=== PATIENT | female | born 1945 | race Hispanic/Latino ===

== ENCOUNTER → 2018-09-26 | Day surgery (SDC) | payer MEDICARE ==
[2018-09-18 14:00] LABS: BASOPHILS # (AUTO) 0.1 (0.0-0.1); BASOPHILS % 1.1 % (0.0-1.0); EOSINOPHILS # (AUTO) 0.4 (0.0-0.4); EOSINOPHILS % 5.7 % (0.0-6.0); HEMATOCRIT 37.8 % (34.2-44.1); HEMOGLOBIN 12.7 g/dL (12.0-16.0); LYMPHOCYTES # (AUTO) 2.1 (1.0-3.2); LYMPHOCYTES % 32.8 % (18.0-39.1); MEAN CORPUSCULAR HEMOGLOBIN 33.3 pg (28-32); MEAN CORPUSCULAR HGB CONC 33.6 g/dL (31-35); MEAN CORPUSCULAR VOLUME 99.2 fL (81-99); MONOCYTES # (AUTO) 0.5 (0.2-0.8); MONOCYTES % 8.4 % (4.4-11.3); NEUTROPHILS # (AUTO) 3.3 (2.1-6.9); NEUTROPHILS % 51.8 % (38.7-80.0); PLATELET COUNT 237 x10e3/uL (140-360); RED BLOOD COUNT 3.81 x10e6/uL (3.6-5.1); RED CELL DISTRIBUTION WIDTH 12.9 % (11.7-14.4)
[2018-09-18 14:17] LABS: ANION GAP 16.2 mmol/L (8-16); CREATININE, SERUM 1.41 mg/dL (0.57-1.11)
[2018-09-18 14:21] LABS: POTASSIUM 5.2 mmol/L (3.5-5.1)
[~2018-09-26] MED LIST: CHONDR SU A NA/HYALUR SOD 1 EACH KIT IO ONE; CYCLOPENTOLATE HCL 1% OPTH SOLN 2ML BTL ONE; EPINEPHRINE HCL INJ 1 MG/ML AMP ONE; GATIFLOXACIN(OPTH) 5 ML LIQD ONE; LIDOCAINE 2% /EPINEPHRINE 20 ML SDV INJ ONE; LIDOCAINE HCL-PF 4% 40 MG/1 ML 5ML AMP ONE; LOSARTAN POTAS100 MG PO; PILOCARPINE HCL(OPTH) 15 ML LIQD ONE; POVIDONE IODINE 5% (OPTH) 30 ML BTL ONE; PREOP PHACO EYE KIT ONE; PROPOFOL IV EMULSION 10 MG/ML 20 ML VIAL ONE; SIMVASTATIN20 MG PO; TOBRAMYCIN/DEXAMETHASONE(OPTH) 3.5 GM TUBE ONE; [UNRECOGNIZED DRUG - REMARK]
--- OUTSIDE RECORDS SUMMARY | 2018-09-26 06:19 | XMS REPORT | Continuity of Care Document ---
Author Author [facility] Interface Address Unknown Phone Unavailable Problems Problem Status Onset Date Classification Date Reported Comments Source UNK Active 02/08/2018 [place] Pain in right shoulder 11/21/2017 02/21/2018 [facility] M54.16 - RADICULOPATHY, LUMBAR REGION M2 Active 11/15/2017 [facility] M51.9 - "UNSP THORACIC, THORACOLUM AND" Active 01/23/2017 [facility] Mammogram<sup>12</sup> Resolved 12/14/2015 Problem 01/27/2017 [facility] no evidence of malignancy [facility] [place] Mammogram<sup>11</sup> Resolved 12/14/2015 Problem 04/04/2018 [facility] no evidence of malignancy [facility] Anxiety disorder<sup>1</sup> Active 04/07/2015 Problem 04/04/2018 Data migrated from Edge[employer] Network[employer] on 05/05/15. [facility] Backache<sup>2, 3, 4</sup> Resolved 04/07/2015 Problem 04/04/2018 Data migrated from [employer] on 04/07/15. [facility] Discharge Diagnosis: Acute sciatica 04/04/2015 04/07/2015 [facility] Discharge Diagnosis: Acute leg pain 04/04/2015 04/07/2015 [place] WEAKNESS Active 04/04/2015 [facility] Chronic kidney disease stage 3<sup>5</sup> Active 03/12/2015 Problem 04/04/2018 Data migrated from [employer] on 04/07/15. [facility] RIGHT SHOULDER Active 02/25/2015 [facility] Indigestion<sup>8</sup> Active 10/20/2014 Problem 04/07/2015 8Data migrated from [employer] on 02/27/15. [facility] Cramp in lower limb<sup>2</sup> Active 09/29/2014 Problem 04/07/2015 2Data migrated from [employer] on 02/27/15. [facility] Cramp in lower limb<sup>7</sup> Resolved 09/29/2014 Problem 04/04/2018 Data migrated from [employer] on 02/27/15. [facility] Upper respiratory infection<sup>14, 15</sup> Resolved 08/31/2014 Problem 01/27/2017 Data migrated from [employer] on 04/16/15. [facility] Upper respiratory infection<sup>13, 14</sup> Resolved 08/31/2014 Problem 04/04/2018 Data migrated from [employer] on 04/16/15. [facility] Cobalamin deficiency<sup>1</sup> Active 08/10/2014 Problem 04/07/2015 1Data migrated from [employer] on 02/27/15. [facility] Vitamin D deficiency<sup>16</sup> Active 08/10/2014 Problem 04/07/2015 16Data migrated from [employer] on 02/27/15. [facility] Vitamin D deficiency<sup>16</sup> Active 08/10/2014 Problem 02/21/2018 Data migrated from [employer] on 02/27/15. [facility] Vitamin D deficiency<sup>17</sup> Active 08/10/2014 Problem 01/27/2017 Data migrated from [employer] on 02/27/15. [facility] Cobalamin deficiency<sup>6</sup> Active 08/10/2014 Problem 04/04/2018 Data migrated from [employer] on 02/27/15. [facility] Vitamin D deficiency<sup>16</sup> Active 08/10/2014 Problem 04/04/2018 Data migrated from [employer] on 02/27/15. [facility] Heart murmur<sup>5</sup> Active 03/11/2014 Problem 04/07/2015 5Data migrated from [employer] on 02/27/15. [facility] [place] Varicose veins of lower extremity<sup>15</sup> Active 03/11/2014 Problem 04/07/2015 15Data migrated from [employer] on 02/27/15. [facility] Varicose veins of lower extremity<sup>15</sup> Active 03/11/2014 Problem 02/21/2018 Data migrated from [employer] on 02/27/15. [facility] Varicose veins of lower extremity<sup>16</sup> Active 03/11/2014 Problem 01/27/2017 Data migrated from [employer] on 02/27/15. [facility] Varicose veins of lower extremity<sup>15</sup> Active 03/11/2014 Problem 04/04/2018 Data migrated from [employer] on 02/27/15. [facility] Impaired fasting glycaemia<sup>7</sup> Active 12/05/2013 Problem 04/07/2015 7Data migrated from [employer] on 02/27/15. [facility] Liver function tests abnormal<sup>10</sup> Active 11/28/2013 Problem 04/07/2015 10Data migrated from [employer] on 02/27/15. [facility] Foot callus<sup>4</sup> Active 11/24/2013 Problem 04/07/2015 4Data migrated from [employer] on 02/27/15. [facility] Osteopenia<sup>12</sup> Active 11/24/2013 Problem 04/07/2015 12Data migrated from [employer] on 02/27/15. [facility] Rotator cuff syndrome<sup>14</sup> Active 11/24/2013 Problem 04/07/2015 14Data migrated from [employer] on 02/27/15. [facility] Rotator cuff syndrome<sup>13</sup> Active 11/24/2013 Problem 01/27/2017 Data migrated from [employer] on 02/27/15. [facility] Rotator cuff syndrome<sup>12</sup> Active 11/24/2013 Problem 04/04/2018 Data migrated from [employer] on 02/27/15. [facility] Mammography abnormal<sup>11</sup> Active 11/13/2013 Problem 04/07/2015 11Data migrated from [employer] on 02/27/15. [facility], [place] Postmenopausal state<sup>13</sup> Active 07/14/2013 Problem 04/07/2015 13Data migrated from [employer] on 02/27/15. [facility] Impacted cerumen<sup>9, 10</sup> Resolved 07/14/2013 Problem 04/04/2018 Data migrated from [employer] on 04/16/15. [facility] Elevated blood-pressure reading without diagnosis of hypertension<sup>3</sup> Active 07/02/2013 Problem 04/07/2015 3Data migrated from [employer] on 02/27/15. [facility] Hyperlipidemia<sup>6</sup> Active Problem 04/07/2015 6Data migrated from [employer] on 02/27/15. [facility] Insomnia<sup>9</sup> Active Problem 04/07/2015 9Data migrated from [employer] on 02/27/15. [facility] [place] Pain in left shoulder 02/21/2018 [facility] Primary osteoarthritis, right shoulder 02/21/2018 [facility] Intervertebral disc disorders with radiculopathy, lumbar region 02/21/2018 [facility] Other spondylosis with radiculopathy, lumbar region 02/21/2018 [facility] Spinal stenosis, lumbar region without neurogenic claudication 02/21/2018 [facility] Spinal stenosis, lumbosacral region 02/21/2018 [facility] Hyperlipemia Resolved Problem 02/21/2018 [facility] History of prediabetes Active Problem 01/27/2017 [facility] Insomnia<sup>11</sup> Active Problem 01/27/2017 Data migrated from [employer] on 02/27/15. [facility] Bilateral low back pain Active Problem 01/27/2017 [facility] Osteoporosis Active Problem 01/27/2017 [facility] Benign hypertension Active Problem 04/04/2018 [facility] Carpal tunnel syndrome Active Problem 04/04/2018 [facility] GERD (<span ID="[id number]">Confirmed</span>) Active Problem 04/04/2018 [facility] Hyperlipemia Resolved Problem 04/04/2018 [facility] Hyperlipidemia<sup>8</sup> Active Problem 04/04/2018 Data migrated from [employer] on 02/27/15. [facility] Osteopenia Active Problem 04/04/2018 [facility] Prediabetes Active Problem 04/04/2018 [facility] Insomnia Active Problem 04/04/2018 [facility] Lumbar canal stenosis Active Problem 04/04/2018 [facility] Scleroderma Active Problem 04/04/2018 [facility] Joint pain Active Diagnosis 09/13/2018 [facility] Dysphagia, unspecified Active Problem 09/13/2018 [facility] Right shoulder pain Active Problem 09/13/2018 [facility] Proteinuria, unspecified Active Diagnosis 09/13/2018 [facility] Abnormal antinuclear antibody titer Active Problem 09/13/2018 [facility] Shoulder pain, right Active Diagnosis 09/13/2018 [facility] Scleroderma with organ system involvment Active Diagnosis 09/13/2018 [facility] Medications Medication Details Route Status Patient Instructions Ordering Provider Order Date Source Hydroxychloroquine Sulfate 1.5 tablet with food or milk Orally Active 200 MG Orally Once a day Lexis 08/01/2018 Tony Gomes PredniSONE 1 tab prn Orally Active 5 MG Orally Once a day [facility] 07/29/2018 Tony Gomes rosuvastatin 5 mg oral tablet 5 mg=1 tab, PO, Bedtime, # 90 tab, 1 Refill(s), Pharmacy: [id number] Active 03/28/2018 [facility] gabapentin 300 MG Oral Capsule 300 mg=1 cap, PO, BID, # 90 cap, 1 Refill(s) Active 12/27/2017 [facility] Ventolin HFA 90 mcg/inh inhalation aerosol with adapter 2 puff, INHALER, Q4H, PRN wheezing, coughing, or shortness of breath, # 8 gm, 1 Refill(s), Pharmacy: [facility] [id number] Active 11/03/2017 [facility] benzonatate 200 MG Oral Capsule [Tessalon] 200 mg=1 cap, PO, TID, X 10 day, # 30 cap, 0 Refill(s), [facility] [id number] No Longer Active 11/03/2017 [facility] azithromycin 250 mg oral tablet See Instructions, Take 2 tablets by mouth the first day then 1 tablet by mouth daily on days 2-5., X 5 day, # 6 tab, 0 Refill(s), Pharmacy: [facility] [id number] No Longer Active 11/03/2017 [facility] Oseltamivir 75 MG Oral Capsule [Tamiflu] 75 mg, PO, Q12H, X 5 day, # 10 cap, 0 Refill(s), [facility] [id number] No Long[facility] Active 11/03/2017 [facility] losartan 25 mg oral tablet 25 mg=1 tab, PO, Daily, # 90 tab, 1 Refill(s), [id number] Active 09/26/2017 [facility] Metoclopramide 10 MG Oral Tablet [Reglan] 10 mg=1 tab, PO, QID, X 7 day, # 28 tab, 0 Refill(s), Pharmacy: [facility]/pharm[facility] #[id number] Active 04/04/2015 [facility] tramadol hydrochloride 50 MG Oral Tablet 50 mg=1 tab, PO, Q4H, PRN as needed for pain, X 7 day, # 24 tab, 0 Refill(s) Active 04/04/2015 [facility] Morphine 4 mg, Route: IM, Drug form: INJ, ONCE, Dosing Weight 59.091, kg, Priority: STAT, Start date: 04/04/15 12:23:00, Stop date: 04/04/15 12:23:00 Inactive 04/04/2015 [facility] Zofran 4 mg, Route: PO, Drug form: TABDIS, ONCE, Dosing Weight 59.091, kg, Priority: STAT, Start date: 04/04/15 11:13:00, Stop date: 04/04/15 11:13:00 Inactive 04/04/2015 [facility] tramadol hydrochloride 50 MG Oral Tablet 50 mg, Route: PO, Drug form: TAB, ONCE, Dosing Weight 59.091, kg, Priority: STAT, Start date: 04/04/15 11:10:00, Stop date: 04/04/15 11:10:00 Inactive 04/04/2015 [facility] ketOROLAC 30 mg/mL injectable solution 30 mg, Route: IM, Drug form: INJ, ONCE, Dosing Weight 59.091, kg, Priority: STAT, Start date: 04/04/15 11:07:00, Stop date: 04/04/15 11:07:00 Inactive 04/04/2015 [facility] Pravastatin Sodium 1 tablet Orally Active 20 MG Orally Once a day [facility] Losartan Potassium 1 tablet Orally Active 25 MG Orally Once a day [facility] Gomes Prevacid 1 capsule Orally Active 15 MG Orally Once a day [facility] Gomes Rosuvastatin Calcium 1 tablet Orally Active 5 MG Orally Once a day [facility] G[facility] Gabapentin 2 capsule Orally Active 300 MG Orally Once a day [facility] Allergies, Adverse Reactions, Alerts Substance Category Reaction Severity Reaction type Status Date Reported Comments Source N.K.D.A. Adverse Reaction Info Not Available Adverse Reaction Active 09/09/2018 [facility] Immunizations Immunization Date Given Site Status Last Updated Comments Source influenza virus vaccine, inactivated<sup>1</sup> 06/01/2017 completed [facility] Result Comment: [06/27/2017] At [facility] influenza virus vaccine, inactivated 06/12/2016 Left Deltoid completed [facility] diphtheria/pertussis, acel/tetanus adult 06/12/2016 Right Deltoid completed [facility] influenza virus vaccine, inactivated 07/01/2015 completed [facility] pneumococcal 23-valent vaccine<sup>3</sup> 08/10/2014 Left Deltoid completed GE Result Comment: pneumovax 23 [[id number]]. Migrated from OBS VIS: Pneumovax 23: 07-06-09 ; Data migrated from [employer] on 11/02/2015. [facility] pneumococcal 23-valent vaccine<sup>4</sup> 08/10/2014 Left Deltoid completed GE Result Comment: pneumovax 23 [cvx33]. Migrated from OBS VIS: Pneumovax 23: 07-06-09 ; Data migrated from [employer] on 11/02/2015. [facility] influenza virus vaccine, inactivated<sup>1</sup> 06/25/2014 Left Deltoid completed GE Result Comment: fluzone high dose [[id number]]. Migrated from OBS ; Data migrated from [employer] on 11/02/2015. [facility] influenza virus vaccine, inactivated<sup>2</sup> 06/25/2014 Left Deltoid completed GE Result Comment: fluzone high dose [[id number]]. Migrated from OBS ; Data migrated from [employer] on 11/02/2015. [facility] influenza virus vaccine, inactivated<sup>2</sup> 07/02/2013 Left Deltoid completed GE Result Comment: fluzone (>3 yrs.) [[id number]]. Migrated from OBS ; Data migrated from [employer] on 11/02/2015. [facility]ONDA [facility] influenza virus vaccine, inactivated<sup>3</sup> 07/02/2013 Left Deltoid completed GE Result Comment: fluzone (>3 yrs.) [[id number]]. Migrated from OBS ; Data migrated from [employer] on 11/02/2015. [facility] Results Order Name Results Value Reference Range Date Interpretation Comments Source Chest 1view DX Chest 1view DX Exam: Chest x-ray, one view Reason for Exam: - [id number] Encounter for other preprocedural examination. Carpal tunnel surgery. Comparison Exam: X-ray 09/27/2009 Discussion: Cardiomediastinal silhouette is within normal limits. Both hemidiaphragms well visualized. No pulmonary edema or pleural effusions. No focal lung consolidations. No acute bony abnormalities. Impression: 1. No acute cardiopulmonary abnormalities. 06/27/2018 - - Read by: Maik Reveles MD Dictated Date/time: 06/27/18 12:41 Electronically Signed by: Maik Reveles MD 06/27/18 12:43 FINAL REPORT [facility]I [facility] Shoulder 2+ Views Bilateral DX Shoulder 2+ Views Bilateral DX Exam: Right and left shoulder x-rays, 3 views each Reason for Exam: Bilateral shoulder pain Comparison Exam: None Discussion: Right: No acute bony abnormalities identified. Moderate osteoarthritis seen within the glenohumeral joint and AC joint. There is downsloping seen of the acromion. If there is suspicion for rotator cuff impingement, consider dedicated MRI exam. No suspicious osteoblastic or osteolytic lesions. Visualized portions of the right rib cage and right lung are unremarkable. Left: No acute bony abnormalities identified. Mild osteoarthritis seen within the glenohumeral joint and AC joint. No suspicious osteoblastic or osteolytic lesions. Visualized portions of the left rib cage and left lung are unremarkable. Impression: 1. Moderate osteoarthritis seen within the right glenohumeral joint and right AC joint. There is downsloping seen of the acromion. If there is suspicion for rotator cuff impingement, consider dedicated MRI exam. 11/15/2017 - - Read by: Maik Reveles MD Dictated Date/time: 11/15/17 15:26 Electronically Signed by: Maik Reveles MD 11/15/17 15:28 FINAL REPORT [facility] Spine lumbar wo contrast MRI Spine lumbar wo contrast MRI Spine lumbar wo contrast MRI 11/15/2017 9:52 AM ORAL HYGIENIST CLINICAL: M54.16 Radiculopathy, lumbar region - M54.16 Radiculopathy, lumbar region COMPARISON: 01/24/2017 radiograph exam. TECHNIQUE: Sagittal T1, sagittal T2 with fat saturation, axial T1 and axial T2 images were obtained. No intravenous gadolinium was given. FINDINGS: The conus medullaris terminates at the L2 level. Levocurvature of the lumbar spine is present. T12-L1: There is preservation of the disc signal intensity, height, with no bulging, herniation, spinal stenosis, or neural foraminal stenosis. L1-L2: There is preservation of the disc signal intensity, height, with no bulging, herniation, spinal stenosis, or neural foraminal stenosis. L2-L3: 2.7 mm disc bulge with mild central canal stenosis. Moderate bilateral foraminal stenosis due to disc bulge encroachment with mass effect on the bilateral L2 exiting nerve roots. L3-L4: 3 mm disc bulge with moderate facet arthrosis and severe thecal sac stenosis with cauda equina crowding. The thecal sac measures 5.5 mm AP dimension. Severe right and moderate left foraminal stenosis with mass effect on bilateral L3 exiting nerve root. L4-L5: Left paracentral inferiorly migrated extrusion measures 3.9 mm AP dimension with severe central canal stenosis in combination with short pedicles, posterior element hypertrophy, and disc bulge. Severe bilateral foraminal stenosis is present. L5-S1: 2.5 mm disc bulge with mild central canal stenosis. Severe left and moderate to severe right foraminal stenosis are present due to left greater than right foraminal and extraforaminal osteophytes with mass effect on L5 nerve roots. 2.4 cm right renal cyst is present. IMPRESSION: 1. Multilevel lumbar spine degenerative changes with levocurvature. 2. L2-L3 mild central canal stenosis and moderate bilateral foraminal stenosis. 3. L3-L4 severe central canal stenosis and cauda equina crowding. Severe right and moderate left foraminal stenosis with mass effect on L3 nerve roots. 4. L4-L5 left paracentral inferiorly migrated extrusion with severe central canal stenosis. Severe bilateral foraminal stenosis. 5. L5-S1 severe left foraminal stenosis and moderate to severe right foraminal stenosis. 11/15/2017 - - Read by: Jaime Keith MD Dictated Date/time: 11/15/17 13:44 Electronically Signed by: Jaime Keith MD 11/15/17 17:24 FINAL REPORT [facility] Spine lumbar series DX Spine lumbar series DX EXAM: Spine lumbar series DX HISTORY: lumbar disc disease m51.9 COMPARISON: None AP, lateral and oblique views of the lumbar spine. There is minimal levocurvature which could be in part related to positioning. There is mild to moderate multilevel disc space narrowing throughout the lumbar spine which is most severe at L4-L5. There is facet arthropathy from L3 through S1 which is moderate to severe. Vertebral body heights are maintained. Small osteophytes are seen throughout the lumbar spine. IMPRESSION: Degenerative change as above. 01/24/2017 - - Read by: Ramez Mendes MD Dictated Date/time: 01/24/17 13:07 Electronically Signed by: Ramez Mendes MD 01/24/17 13:08 FINAL REPORT [facility] Vital Signs Vital Sign Value Date Comments Source Weight 127 09/09/2018 [facility] Height 60 09/09/2018 [facility] Temperature Oral (F) 97.9 F 09/09/2018 [facility] Heart Rate 72 09/09/2018 [facility] Diastolic (mm Hg) 60 09/09/2018 [facility] Systolic (mm Hg) 136 09/09/2018 [facility] Weight 132 08/07/2018 [facility] Height 59 08/07/2018 [facility] Temperature Oral (F) 97.0 F 08/07/2018 [facility] Heart Rate 80 08/07/2018 [facility] Diastolic (mm Hg) 62 08/07/2018 [facility] Systolic (mm Hg) 118 08/07/2018 [facility] Weight 132.8 07/29/2018 [facility] Height 58.5 07/29/2018 [facility] Temperature Oral (F) 98.2 F 07/29/2018 [facility] Heart Rate 66 07/29/2018 [facility] Diastolic (mm Hg) 60 07/29/2018 [facility] Systolic (mm Hg) 120 07/29/2018 [facility] Weight 134 04/30/2018 [facility] Height 59 04/30/2018 [facility] Temperature Oral (F) 97.7 F 04/30/2018 [facility] Heart Rate 68 04/30/2018 [facility] Diastolic (mm Hg) 60 04/30/2018 [facility] Systolic (mm Hg) 112 04/30/2018 [facility] BMI Calculated 24.83 03/28/2018 [facility] Weight 59.602 03/28/2018 [facility] Height 154.94 cm 03/28/2018 [facility] Temperature Oral (F) 97.5 F 03/28/2018 [facility] Systolic (mm Hg) 106 03/28/2018 [facility] Diastolic (mm Hg) 66 03/28/2018 [facility] Heart Rate 75 03/28/2018 [facility] Respitory Rate 16 03/28/2018 [facility] Weight 60.057 12/27/2017 [facility] BMI Calculated 25.02 12/27/2017 [facility] Temperature Oral (F) 97.0 F 12/27/2017 [facility] Heart Rate 1 12/27/2017 [facility] Respitory Rate 16 12/27/2017 [facility] Height 154.94 cm 12/27/2017 [facility] Systolic (mm Hg) 119 12/27/2017 [facility] Diastolic (mm Hg) 65 12/27/2017 [facility] Heart Rate 78 11/03/2017 [facility] Respitory Rate 18 11/03/2017 [facility] Temperature Oral (F) 101.2 F 11/03/2017 [facility] BMI Calculated 25.44 11/03/2017 [facility] Height 152.4 cm 11/03/2017 [facility] Weight 59.091 11/03/2017 [facility] Systolic (mm Hg) 129 11/03/2017 [facility] Diastolic (mm Hg) 66 11/03/2017 [facility] Weight 61.818 09/26/2017 [facility] BMI Calculated 26.62 09/26/2017 [facility] Systolic (mm Hg) 114 09/26/2017 [facility] Diastolic (mm Hg) 66 09/26/2017 [facility] Heart Rate 78 09/26/2017 [facility] Respitory Rate 16 09/26/2017 [facility] Height 152.4 cm 09/26/2017 [facility] Temperature Oral (F) 97.7 F 09/26/2017 [facility] Respitory Rate 16 04/04/2015 [facility] Systolic (mm Hg) 158 04/04/2015 [facility] Diastolic (mm Hg) 71 04/04/2015 [facility] Heart Rate 65 04/04/2015 [facility] Heart Rate 94 04/04/2015 [facility] Systolic (mm Hg) 157 04/04/2015 [facility] Diastolic (mm Hg) 94 04/04/2015 [facility] Temperature Oral (F) 97.9 F 04/04/2015 [facility] Weight 59.091 04/04/2015 [facility] Respitory Rate 16 04/04/2015 [facility] Encounters Location Location Details Encounter Type Encounter Number Reason For Visit Attending Provider ADM Date DC Date Status Source [facility] OP Therapy Patients [id number] Jovany Fields Jr 03/01/2015 03/31/2015 [facility] [id number] Kwaku Brooks 04/04/2015 04/04/2015 [facility] Outpatient [id number] ALAINA GRIFFIN 07/23/2015 [facility] [id number] TRACY WILLIS 10/11/2015 [facility] [id number] ALAINA GRIFFIN 12/03/2015 [facility] [id number] ALAINA GRIFFIN 01/18/2016 [facility] [id number] ALAINA GRIFFIN 03/06/2016 [facility] [id number] ALAINA GRIFFIN 05/05/2016 [facility] [id number] ALAINA GRIFFIN 06/12/2016 [facility] [id number] ALAINA GRIFFIN 09/11/2016 [facility] [id number] ALAINA GRIFFIN 12/08/2016 [facility] [id number] ALAINA GRIFFIN 12/26/2016 [facility] [id number] Joycelyn Palvadi 01/24/2017 01/25/2017 [facility] [id number] ALAINA GRIFFIN 02/14/2017 [facility] [id number] ALAINA GRIFFIN 03/02/2017 [facility] [id number] ALAINA GRIFFIN 03/26/2017 [facility] [id number] ALAINA GRIFFIN 06/27/2017 [facility] [id number] ALAINA GRIFFIN 09/26/2017 [facility] Primary Care [facility] Outpatient [id number] Alaina Griffin 09/26/2017 09/27/2017 [facility] Primary Care [facility] Phone Message [id number] 10/02/2017 10/04/2017 [facility] Outpatient [id number] WAN ARCHULETA 11/03/2017 Active [facility] [id number] Wan Archuleta 11/03/2017 11/04/2017 [facility] [id number] Joycelyn Palvadi 11/15/2017 11/16/2017 [facility] [id number] ALAINA ELIAS 12/27/2017 [facility] Primary Care [facility] Outpatient [id number] Alaina Elias 12/27/2017 12/28/2017 [facility] Primary [facility] Phone Message [id number] 03/08/2018 03/10/2018 [facility] Outpatient [id number] ALAINA ELIAS 03/28/2018 [facility] [facility] Outpatient [id number] Alaina Elias 03/28/2018 03/29/2018 [facility] Outpatient [id number] ALAINA ELIAS 06/26/2018 Active [facility] Outpatient [id number] ALAINA ELIAS 10/30/2018 Active [facility] Procedures Procedure Code Date Perfomer Comments Source Endoscopy<sup>1</sup> [id number] 02/06/2017 Reflux Esophagitis, Mild erosive gastritis. Dr Hollins [facility] Endoscopy<sup>1</sup> [id number] 02/06/2017 Reflux Esophagitis, Mild erosive gastritis. Dr Hollins [facility] Bone density scan<sup>2</sup> [id number] 01/29/2017 Osteopenia (improved from osteoporosis) [facility] Bone density scan<sup>2</sup> [id number] 01/29/2017 Osteopenia (improved from osteoporosis) [facility] Mammogram - screening<sup>3</sup> [id number] 01/01/2017 Negative, next one in a year. At [facility] Mammogram - screening [id number] 01/01/2017 [facility] Mammogram - screening<sup>3</sup> [id number] 01/01/2017 Negative, next one in a year. At [facility] Mammogram - screening [id number] 01/01/2017 [facility] Colonoscopy<sup>4</sup> [id number] 03/27/2016 moderate diverticulosis,internal hemorrhoids repeat in 5years. . [facility] Colonoscopy<sup>1</sup> [id number] 03/27/2016 moderate diverticulosis,internal hemorrhoids repeat in 5years. . [facility] Colonoscopy<sup>4</sup> [id number] 03/27/2016 moderate diverticulosis,internal hemorrhoids repeat in 5years. . [facility] Colonoscopy<sup>3</sup> [id number] 03/27/2016 moderate diverticulosis,internal hemorrhoids repeat in 5years. . [facility] Examination of eye<sup>5, 6</sup> [id number] 03/01/2016 Per patientDr.Carlitos Wang [facility] Examination of eye<sup>2, 3</sup> [id number] 03/01/2016 Per patientDr.Carltios Wang [facility] Examination of eye<sup>5, 6</sup> [id number] 03/01/2016 Per patientDr.Carlitos Wang [facility] Examination of eye<sup>4, 5</sup> [id number] 03/01/2016 Per patientDr.Carlitos Wang Medical [facility] Bone density scan<sup>4</sup> [id number] 01/26/2016 Osteoporosis [facility] Varicose vein operation [id number] 12/30/2015 [facility] Varicose vein operation [id number] 12/30/2015 Medical [facility] Myocardial perfusion scan [id number] 10/01/2014 [facility] Myocardial perfusion scan [id number] 10/01/2014 [facility] Echocardiogram<sup>7</sup> [id number] 11/29/2012 EF 67% Normal [facility] Echocardiogram<sup>5</sup> [id number] 11/29/2012 EF 67% Normal [facility] Echocardiogram<sup>7</sup> [id number] 11/29/2012 EF 67% Normal [facility] Echocardiogram<sup>6</sup> [id number] 11/29/2012 EF 67% Normal [facility] section<sup>8</sup> [id number] x2 [facility] section<sup>6</sup> [id number] x2 [facility] section<sup>8</sup> [id number] x2 [facility] section<sup>7</sup> [id number] x2 [facility]
--- OUTSIDE RECORDS SUMMARY | 2018-09-26 06:20 | XMS REPORT ---
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
--- OUTSIDE RECORDS SUMMARY | 2018-09-26 06:20 | XMS REPORT | Summary of Care ---
Author Author [facility] Organization [facility] Address Unknown Phone Unavailable Encounter HQ Jerry(FIN) [id number] Date(s): 11/03/17 - 11/03/17 [facility] [address] [place] [address]- [place] [phone] Discharge Disposition: Home or Self Care Attending Physician: Wan Calix MD Vital Signs Most recent to 1 oldest [Reference Range]: Height 152.4 cm (11/03/17 12:36 PM) Temperature Oral 101.2 DegF [96.4-99.1 DegF] *HI* (11/03/17 12:36 PM) Blood Pressure 129/66 mmHg [90-140/60-90 mmHg] (11/03/17 12:36 PM) Respiratory Rate 18 BRMIN [14-20 BRMIN] (11/03/17 12:36 PM) Peripheral Pulse 78 bpm Rate [60-100 bpm] (11/03/17 12:36 PM) Weight 59.091 kg (11/03/17 12:36 PM) Body Mass Index 25.44 m2 (11/03/17 12:36 PM) Problem List Condition Effective Dates Status Health Status Informant Anxiety disorder1 04/07/15 Active Backache2, 3, 4 04/07/15 Resolved Benign Active hypertension(Confirm ed) Chronic kidney 03/12/15 Active disease stage 3(Confirmed)5 Cobalamin 08/10/14 Active deficiency6 Cramp in lower limb7 09/29/14 Resolved Carpal tunnel Active syndrome(Confirmed) GERD Active (gastroesophageal reflux disease)(Confirmed) Hyperlipemia(Confirm Resolved ed) Hyperlipidemia(Confi Active rmed)8 Impacted cerumen9, 07/14/13 Resolved 10 Mammogram(Confirmed) 12/14/15 Resolved 11 Osteopenia(Confirmed Active ) Prediabetes(Confirme Active d) Rotator cuff 11/24/13 Active Insomnia(Confirmed) Active Lumbar canal Active stenosis(Confirmed) Scleroderma(Confirme Active d) Upper respiratory 08/31/14 Resolved thuinupph92, 14 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 2Data migrated from [employer] on 05/05/15. 3Data migrated from [employer] on 04/07/15. 4Data migrated from [employer] on 04/07/15. 5Data migrated from [employer] on 04/07/15. 6Data migrated from [employer] on 02/27/15. 7Data migrated from [employer] on 02/27/15. 8Data migrated from [employer] on 02/27/15. 9Data migrated from [employer] on 04/17/15. 10Data migrated from [employer] on 04/16/15. 11The Elva no evidence of malignancy 12Data migrated from [employer] on 02/27/15. 13Data migrated from [employer] on 04/17/15. 14Data migrated from [employer] on 04/16/15. 15Data migrated from [employer] on 02/27/15. 16Data migrated from [employer] on 02/27/15. Allergies, Adverse Reactions, Alerts Substance Reaction Severity Status NKDA Active Medications azithromycin 250 mg oral tablet See Instructions, Take 2 tablets by mouth the first day then 1 tablet by mouth d aily on days 2-5., X 5 day, # 6 tab, 0 Refill(s), Pharmacy: [id number] Start Date: 11/03/17 Stop Date: 11/08/17 Status: Completed TamiFLU 75 mg oral capsule 75 mg, PO, Q12H, X 5 day, # 10 cap, 0 Refill(s), Pharmacy: [id number] Start Date: 11/03/17 Stop Date: 11/08/17 Status: Completed Tessalon 200 mg oral capsule 200 mg=1 cap, PO, TID, X 10 day, # 30 cap, 0 Refill(s), [facility] [id number] Start Date: 11/03/17 Stop Date: 11/13/17 Status: Completed Ventolin HFA 90 mcg/inh inhalation aerosol with adapter 2 puff, INHALER, Q4H, PRN wheezing, coughing, or shortness of breath, # 8 gm, 1 Refill(s), Pharmacy: [facility] [id number] Start Date: 11/03/17 Status: Ordered Results No data available for this section Immunizations Given and Recorded Vaccine Date Status Refusal Reason influenza virus vaccine, inactivated1 06/01/17 Recorded influenza virus vaccine, inactivated 06/12/16 Given influenza virus vaccine, inactivated 07/01/15 Recorded influenza virus vaccine, inactivated2 06/25/14 Given influenza virus vaccine, inactivated3 07/02/13 Given diphtheria/pertussis, acel/tetanus adult 06/12/16 Given pneumococcal 23-valent vaccine4 08/10/14 Given 1Result Comment: [06/27/2017] At [facility] 2Result Comment: fluzone high dose [[id number]]. Migrated from OBS ; Data migrated from [employer] on 11/02/2015. 3Result Comment: fluzone (>3 yrs.) [[id number]]. Migrated from OBS ; Data migrated from [employer] on 11/02/2015. 4Result Comment: pneumovax 23 [cvx33]. Migrated from OBS VIS: Pneumovax 23: 07-06-09 ; Data migrated from [employer] on 11/02/2015. Procedures Procedure Date Related Diagnosis Body Site Status Endoscopy1 02/06/17 Completed Bone density scan2 01/29/17 Completed Mammogram - screening3 01/01/17 Completed Colonoscopy4 03/27/16 Completed Examination of eye5, 6 03/2016 Completed Varicose vein operation 12/30/15 Completed Myocardial perfusion scan 10/2014 Completed Echocardiogram7 11/29/12 Completed section8 Completed 1Reflux Esophagitis, Mild erosive gastritis. Dr Hollins 2Osteopenia (improved from osteoporosis) 3Negative, next one in a year. At [facility] [place] [facility] [place] 4moderate diverticulosis,internal hemorrhoids repeat in 5years. . 5Per patient 6Dr.Carlitos Wang 7EF 67% Normal 8x2 Social History Social History Type Response Alcohol Never Smoking Status Never smoker; Ready to change: No; Concerns about tobacco use in household: No; Exposure to Tobacco Smoke None; Cigarette Smoking Last 365 Days No; Reg Smoking Cessation Counseling No entered on: 12/27/17 Assessment and Plan No data available for this section
--- OUTSIDE RECORDS SUMMARY | 2018-09-26 06:20 | XMS REPORT | Summary of Care ---
Author Author [facility] Outpatient Imaging - [facility] [place] Address Unknown Phone Unavailable Encounter HQ Jerry([facility]) [id number] Date(s): 11/15/17 - 11/15/17 [facility] [place] [address], [place] [address] [phone] Encounter Diagnosis Pain in right shoulder (Final) - 11/20/17 Pain in left shoulder (Final) - Primary osteoarthritis, right shoulder (Final) - Intervertebral disc disorders with radiculopathy, lumbar region (Final) - Other spondylosis with radiculopathy, lumbar region (Final) - Spinal stenosis, lumbar region without neurogenic claudication (Final) - Spinal stenosis, lumbosacral region (Final) - Discharge Disposition: Home or Self Care Attending Physician: Joycelyn Armenta MD Vital Signs No data available for this section Problem List Condition Effective Dates Status Health [...] Prediabetes(Confirme Active d) Rotator cuff 11/24/13 Active wzijkjai87 Insomnia(Confirmed) Active Lumbar canal Active stenosis(Confirmed) Scleroderma(Confirme Active d) Upper respiratory 08/31/14 Resolved jramjofky36, 14 Varicose veins of 03/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 [...] Substance Reaction Severity Status NKDA Active Medications No data available for this section Results No data available for this section Immunizations Given and Recorded Vaccine Date Status Refusal Reason influenza virus vaccine, inactivated1 06/01/17 Recorded influenza virus vaccine, inactivated 06/12/16 Given influenza virus vaccine, inactivated 07/01/15 Recorded influenza virus vaccine, inactivated2 06/25/14 Given influenza virus vaccine, inactivated3 07/02/13 Given diphtheria/pertussis, acel/tetanus adult 06/12/16 Given pneumococcal 23-valent vaccine4 08/10/14 Given 1Result Comment: [06/27/2017] At [facility] 2Result Comment: fluzone high dose [cpr091]. Migrated from OBS ; Data migrated from [employer] on 11/02/2015. 3Result Comment: fluzone (>3 yrs.) [[id number]]. Migrated from OBS ; Data migrated from [employer] on 11/02/2015. 4Result Comment: pneumovax 23 [cvx33]. Migrated from OBS VIS: Pneumovax 23: 07-06-09 ; Data migrated from [employer] on 11/02/2015. Procedures Procedure Date Related Diagnosis [...] next one in a year. At [facility] [place] 4moderate diverticulosis,internal hemorrhoids repeat in 5years. . [...]
--- OUTSIDE RECORDS SUMMARY | 2018-09-26 06:20 | XMS REPORT ---
Author Nakul Abbott Organization [employer] Address Unknown Phone Unavailable Care Team Providers Care Toy Assembler Wood Name Role Phone Nakul Gomes CP Unavailable [...]
--- OUTSIDE RECORDS SUMMARY | 2018-09-26 06:20 | XMS REPORT | Summary of Care ---
Author Organization Unknown Address Unknown Phone Unavailable Encounter HQ Jerry([facility]) [id number] Date(s): 04/04/15 - 04/04/15 [facility] [address] [place] [address]- Discharge Diagnosis: Acute sciatica Discharge Diagnosis: Acute leg pain Discharge Disposition: Home Physician Attending: Kwaku Brooks DO Vital Signs Most recent to 1 2 oldest [Reference Range]: Temperature Oral 97.9 DegF [96.4-99.1 DegF] (04/04/15 9:41 AM) Blood Pressure 158/71 mmHg 157/94 mmHg [90-140/60-90 mmHg] *HI* *HI* (04/04/15 12:29 PM) (04/04/15 9:41 AM) Respiratory Rate 16 BRMIN 16 BRMIN [14-20 BRMIN] (04/04/15 12:29 PM) (04/04/15 9:41 AM) Peripheral Pulse 65 bpm 94 bpm Rate [60-100 bpm] (04/04/15 12:29 PM) (04/04/15 9:41 AM) Weight 59.091 kg (04/04/15 9:41 AM) Problem List Condition Effective Dates Status Health Status Informant Cobalamin 08/10/14 Active deficiency1 Cramp in lower limb2 09/29/14 Active Elevated 07/02/13 Active blood-pressure reading without diagnosis of hypertension3 Foot callus4 11/24/13 Active Heart murmur5 03/11/14 Active Hyperlipemia(Confirm Resolved ed) Hyperlipidemia6 Active Impaired fasting 12/05/13 Active glycaemia7 Indigestion8 10/20/14 Active Insomnia9 Active Liver function tests 11/28/13 Active xlkgnoqs97 Mammography 11/13/13 Active rowgokim44 Lcwylemyex40 11/24/13 Active Postmenopausal 07/14/13 Active state13 Rotator cuff 11/24/13 Active idambage06 Varicose veins of 03/11/14 Active lower gftrzdhno95 Vitamin D 08/10/14 Active vtjqhvuppx35 1Data migrated from [employer] on 02/27/15. 2Data migrated from [employer] on 02/27/15. 3Data migrated from [employer] on 02/27/15. 4Data migrated from [employer] on 02/27/15. 5Data migrated from [employer] on 02/27/15. 6Data migrated from [employer] on 02/27/15. 7Data migrated from [employer] on 02/27/15. 8Data migrated from [employer] on 02/27/15. 9Data migrated from [employer] on 02/27/15. 10Data migrated from [employer] on 02/27/15. 11Data migrated from [employer] on 02/27/15. 12Data migrated from [employer] on 02/27/15. 13Data migrated from [employer] on 02/27/15. 14Data migrated from [employer] on 02/27/15. 15Data migrated from [employer] on 02/27/15. 16Data migrated from [employer] on 02/27/15. Allergies, Adverse Reactions, Alerts Substance Reaction Severity Status NKDA Active Medications ketOROLAC 30 mg/mL injectable solution 30 mg, Route: IM, Drug form: INJ, ONCE, Dosing Weight 59.091, kg, Priority: STAT , Start date: 04/04/15 11:07:00, Stop date: 04/04/15 11:07:00 Start Date: 04/04/15 Stop Date: 04/04/15 Status: Completed morphine Sulfate 4 mg, Route: IM, Drug form: INJ, ONCE, Dosing Weight 59.091, kg, Priority: STAT, Start date: 04/04/15 12:23:00, Stop date: 04/04/15 12:23:00 Start Date: 04/04/15 Stop Date: 04/04/15 Status: Completed Reglan 10 mg oral tablet 10 mg=1 tab, PO, QID, X 7 day, # 28 tab, 0 Refill(s), Pharmacy: [facility]/pharmacy #[id number] Start Date: 04/04/15 Stop Date: 04/11/15 Status: Ordered tramadol 50 mg oral tablet 50 mg=1 tab, PO, Q4H, PRN as needed for pain, X 7 day, # 24 tab, 0 Refill(s) Start Date: 04/04/15 Stop Date: 04/11/15 Status: Ordered tramadol 50 mg oral tablet 50 mg, Route: PO, Drug form: TAB, ONCE, Dosing Weight 59.091, kg, Priority: STAT , Start date: 04/04/15 11:10:00, Stop date: 04/04/15 11:10:00 Start Date: 04/04/15 Stop Date: 04/04/15 Status: Completed Zofran 4 mg, Route: PO, Drug form: TABDIS, ONCE, Dosing Weight 59.091, kg, Priority: ST AT, Start date: 04/04/15 11:13:00, Stop date: 04/04/15 11:13:00 Start Date: 04/04/15 Stop Date: 04/04/15 Status: Completed Results No data available for this section Immunizations No data available for this section Procedures No data available for this section Social History Social History Type Response Smoking Status Never smoker; Exposure to Tobacco Smoke None; Cigarette Smoking Last 365 Days No; Reg Smoking Cessation Counseling No Assessment and Plan No data available for this section
--- OUTSIDE RECORDS SUMMARY | 2018-09-26 06:20 | XMS REPORT | Summary of Care ---
Author Author [facility] Address Unknown Phone Unavailable Encounter HQ Jerry(FIN) [id number] Date(s): 09/26/17 - 09/26/17 [facility] [address], [address] [place] [address]- [phone] Discharge Disposition: Home or Self Care Attending Physician: Teresa Ackerman MD Vital Signs Most recent to 1 oldest [Reference Range]: Height 152.4 cm (09/26/17 9:22 AM) Temperature Oral 97.7 DegF [96.4-99.1 DegF] (09/26/17 9:22 AM) Blood Pressure 114/66 mmHg [90-140/60-90 mmHg] (09/26/17 9:22 AM) Respiratory Rate 16 BRMIN [14-20 BRMIN] (09/26/17 9:22 AM) Peripheral Pulse 78 bpm Rate [60-100 bpm] (09/26/17 9:22 AM) Weight 61.818 kg (09/26/17 9:22 AM) Body Mass Index 26.62 m2 (09/26/17 9:22 AM) Problem List Condition Effective Dates Status [...] Prediabetes(Confirme Active d) Rotator cuff 11/24/13 Active vkiunjtj14 Insomnia(Confirmed) Active Upper respiratory 08/31/14 Resolved gxneinxmo87, 14 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 [...] Substance Reaction Severity Status NKDA Active Medications losartan 25 mg oral tablet 25 mg=1 tab, PO, Daily, # 90 tab, 1 Refill(s), Pharmacy: [id number] Start Date: 09/26/17 Stop Date: 03/25/18 Status: Ordered Results No data available for this section Immunizations Given and Recorded Vaccine Date Status Refusal Reason influenza virus vaccine, inactivated1 06/01/17 Recorded influenza virus vaccine, inactivated 06/12/16 Given influenza virus vaccine, inactivated 07/01/15 Recorded influenza virus vaccine, inactivated2 06/25/14 Given influenza virus vaccine, inactivated3 07/02/13 Given diphtheria/pertussis, acel/tetanus adult 06/12/16 Given pneumococcal 23-valent vaccine4 08/10/14 Given 1Result Comment: [06/27/2017] [facility] 2Result Comment: fluzone high dose [rhe568]. Migrated from OBS ; Data migrated from [employer] on 11/02/2015. 3Result Comment: fluzone (>3 yrs.) [kdh644]. Migrated from OBS ; Data migrated from [employer] on 11/02/2015. 4Result Comment: pneumovax 23 [cvx33]. Migrated from OBS VIS: Pneumovax 23: 07-06-09 ; Data migrated from [employer] on 11/02/2015. Procedures Procedure Date Related Diagnosis Body Site Endoscopy1 02/06/17 Bone density scan2 01/29/17 Mammogram - screening 01/01/17 Colonoscopy3 03/27/16 Examination of eye4, 5 03/2016 Varicose vein operation 12/30/15 Myocardial perfusion scan 10/2014 Echocardiogram6 11/29/12 section7 1Reflux Esophagitis, Mild erosive gastritis. Dr Hollnis 2Osteopenia (improved from osteoporosis) 3moderate diverticulosis,internal hemorrhoids repeat in 5years. . 4Per patient 5Dr.Carlitos Wang 6EF 67% Normal 7x2 Social History Social History Type Response Alcohol Never Smoking Status Never smoker; Exposure to Tobacco Smoke None; Cigarette Smoking Last 365 Days No; Reg Smoking Cessation Counseling No Assessment and Plan No data available for this section
--- OUTSIDE RECORDS SUMMARY | 2018-09-26 06:20 | XMS REPORT | Summary of Care ---
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 [...] vaccine4 08/10/14 Given 1Result Comment: [06/27/2017] At [facility] 2Result Comment: fluzone high dose [[id number]]. Migrated from OBS ; Data migrated from [employer] on 11/02/2015. 3Result Comment: fluzone (>3 yrs.) [zuv522]. Migrated from OBS ; Data migrated from [...] section7 1Reflux Esophagitis, Mild erosive gastritis. Dr Hollins 2Osteopenia (improved from osteoporosis) 3moderate diverticulosis,internal hemorrhoids repeat in 5years. . 4Per patient 5Dr.Carlitos Wang 6EF 67% Normal 7x2 Social History Social History Type Response Alcohol Never Smoking Status Never smoker; Exposure to Tobacco Smoke None; Cigarette Smoking Last 365 Days No; Reg Smoking Cessation Counseling No Assessment and Plan No data available for this section
--- OUTSIDE RECORDS SUMMARY | 2018-09-26 06:20 | XMS REPORT ---
Author Author Hugo Pires [facility] [employer] Address Unknown Phone Unavailable Care Team Providers Care Vice President Network Development Name Role Phone Hugo Pires CP Unavailable Allergies No Known Allergies Problems [...]
--- OUTSIDE RECORDS SUMMARY | 2018-09-26 06:20 | XMS REPORT ---
Author Author Hugo Pires [facility] eClinicalWorks Address Unknown Phone Unavailable Care Team Providers Care Change Management Name Role Phone LexisHugo Unavailable Allergies, Adverse Reactions, Alerts Substance Reaction Event Type N.K.D.A. 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 Medications Medication Code System Code Instructions Start Date End Date Status Dosage Pravastatin Sodium [facility] 65432488318 20 MG Orally Once a day Active 1 tablet PredniSONE ND 15742987385 5 MG Orally Once a day Jul 29, 2018 Aug 28, 2018 Active 1 tab prn Prevacid [facility] 49800577130 15 MG Orally Once a day Active 1 capsule Losartan Potassium ND 36314975516 25 MG Orally Once a day Active 1 tablet Rosuvastatin Calcium ND 71439648494 5 MG Orally Once a day Active 1 tablet Gabapentin [facility] 21716836906 300 MG Orally Once a day Active 2 capsule Vital Signs Date/Time: Jul 29, 2018 BMI 27.28 Index Weight 132.8 lbs Height 58.5 in Temperature 98.2 F Cardiac Monitoring Heart Rate 66 /min Blood Pressure Diastolic 60 mm Hg Blood Pressure Systolic 120 mm Hg Results Name Result Date Reference Range Unit Abnormality Flag PROTEIN/CREATININE RATIO, URINE ----CALC PROTEIN/CREATININE 1384 [id number] SEE BELOW MG/G CREAT ----PROTEIN, URINE, CONC. 71 [id number] NOT ESTAB MG/DL ----CREATININE, URINE, CONC. 51.3 [id number] NOT ESTAB MG/DL SEDIMENTATION RATE ----SEDIMENTATION RATE 23 [id number] 0-20 MM/HOUR H COMPREHENSIVE METABOLIC PANEL ----CALC A/G RATIO 1.6 [id number] 1.0-2.6 RATIO ----CALC GLOBULIN 2.6 [id number] 1.9-3.7 G/DL ----ALKALINE PHOSPHATASE 85 88810370 40-142 U/L ----BILIRUBIN, TOTAL 0.3 56097158 <=1.2 MG/DL ----CHLORIDE 104 92981401 95-107 MEQ/L ----ALT 24 65788555 5-40 U/L ----POTASSIUM 4.6 54046501 3.5-5.4 MEQ/L ----AST 30 20180729 9-40 U/L ----SODIUM 140 04594426 133-146 MEQ/L ----CALC BUN/CREAT 19 06431576 6-28 RATIO ---- eGFR NON- AMER. 46 [id number] >60 ML/MIN/1.73 L ----CALCIUM 9.6 [id number] 8.5-10.5 MG/DL ----CARBON DIOXIDE 24 [id number] 19-31 MEQ/L ----ALBUMIN 4.1 [id number] 3.5-5.2 G/DL ----PROTEIN, TOTAL 6.7 37080100 6.1-8.3 G/DL ----GLUCOSE 130 20862472 70-99 MG/DL H ----BUN 23 [id number] 8-23 MG/DL ----CREATININE 1.19 [id number] 0.60-1.30 MG/DL ---- eGFR AMER. 53 [id number] >60 ML/MIN/1.73 L URINALYSIS WITH MICROSCOPIC ----PROTEIN 2+ 09664508 NEGATIVE A ----pH 5.0 25166273 5.0-9.0 ----KETONES NEGATIVE 36569011 NEGATIVE ----GLUCOSE NEGATIVE 70934786 NEGATIVE ----BILIRUBIN NEGATIVE 25041939 NEGATIVE ----OCCULT BLOOD NEGATIVE 45341546 NEGATIVE ----UROBILINOGEN <2.0 55647068 <=2.0 MG/DL ----EPITHELIAL CELLS 0 91410878 0-10 /HPF ----LEUKOCYTE ESTERASE NEGATIVE 19478577 NEGATIVE ----NITRITE NEGATIVE 92566256 NEGATIVE ----APPEARANCE CLEAR 04695264 CLEAR ----WHITE BLOOD CELLS 0-5 75443034 0-5 /HPF ----RED BLOOD CELLS 0-2 10986346 0-5 /HPF ----SPECIFIC GRAVITY 1.009 81196503 1.005-1.035 ----COLOR YELLOW 77396292 YELLOW-STRAW HIGH SENSITIVITY CRP ----HIGH SENSITIVITY CRP 4.7 [id number] SEE BELOW MG/L H CBC W/AUTO DIFF ----HEMOGLOBIN 12.9 75898745 11.5-15.5 G/DL ----RBC 3.90 93670118 3.80-5.10 M/UL ----MCV 94.9 61394275 80.0-100.0 fL ----HEMATOCRIT 37.0 62754156 34.0-45.0 % ----MCHC 34.9 45867907 32.0-35.5 G/DL ----MCH 33.1 53057869 27.0-34.0 PG ----NEUTROPHILS 58.2 76499703 40.0-74.0 % ----RDW 12.6 58706295 11.0-15.0 % ----LYMPHOCYTES 26.5 11764972 19.0-48.0 % ----EOSINOPHILS 6.7 05789656 0.0-7.0 % ----MONOCYTES 7.6 05878500 4.0-13.0 % ----PLATELET COUNT 201 00876577 130-400 K/UL ----BASOPHILS 1.0 20831148 0.0-2.0 % ----WBC 7.0 89651740 4.0-11.0 K/UL Summary Purpose eClinicalWorks Submission
--- OUTSIDE RECORDS SUMMARY | 2018-09-26 06:20 | XMS REPORT ---
Author Author Hugo Pires Organization [employer] Address Unknown Phone Unavailable Care Team Providers Care Ring Maker Name Role Phone Hugo Pires CP Unavailable [...] Instructions Start Date End Date Status Dosage Hydroxychloroquine Sulfate [facility] 22009181218 200 MG Orally twice a day Aug 01, 2018 Active 1 tablet with food or milk Results No Known Results Summary Purpose eClinicalWorks Submission
--- OUTSIDE RECORDS SUMMARY | 2018-09-26 06:20 | XMS REPORT ---
Author Author Hugo Pires Organization [employer] Address Unknown Phone Unavailable Care Team Providers Care Sales Representative Advertising Name Role Phone Hugo Pires CP Unavailable Allergies, Adverse Reactions, Alerts Substance Reaction Event Type N.K.D.A. 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 Assessment Dysphagia, unspecified R13.10 Active Problem Abnormal antinuclear antibody titer R76.8 Active Problem Proteinuria, unspecified R80.9 Active Medications Medication Code System Code Instructions Start Date End Date Status Dosage Pravastatin Sodium [facility] 37389298514 20 MG Orally Once a day Active 1 tablet Losartan Potassium [facility] 40562505626 25 MG Orally Once a day Active 1 tablet Prevacid [facility] 37316613892 15 MG Orally Once a day Active 1 capsule Vital Signs Date/Time: April 30, 2018 BMI 27.06 Index Weight 134 lbs Height 59 in Temperature 97.7 F Cardiac Monitoring Heart Rate 68 /min Blood Pressure Diastolic 60 mm Hg Blood Pressure Systolic 112 mm Hg Results No Known Results Summary Purpose eClinicalWorks Submission
--- OUTSIDE RECORDS SUMMARY | 2018-09-26 06:20 | XMS REPORT | Summary of Care ---
Author Author [facility] [place] Organization [facility] [place] Address Unknown Phone Unavailable Encounter HQ Jerry(IVAN) [id number] Date(s): 01/24/17 - 01/24/17 [facility] [place] [address] [place] [phone] Discharge Disposition: Home or Self Care Attending Physician: Joycelyn Armenta MD Vital Signs No data available for this section Problem List Condition Effective Dates Status Health Status Informant Anxiety disorder1 04/07/15 Active Backache2, 3, 4 04/07/15 Resolved Chronic kidney 03/12/15 Active disease stage 3(Confirmed)5 Cobalamin 08/10/14 Active deficiency6 Cramp in lower limb7 09/29/14 Resolved Carpal tunnel Active syndrome(Confirmed) GERD Active (gastroesophageal reflux disease)(Confirmed) History of Active prediabetes(Confirme d) Hyperlipemia(Confirm Resolved ed) Hyperlipidemia(Confi Active rmed)8 Impacted cerumen9, 07/14/13 Resolved 10 Insomnia(Confirmed)1 Active 1 Bilateral low back Active pain(Confirmed) Mammogram(Confirmed) 12/14/15 Resolved 12 Osteoporosis(Confirm Active ed) Rotator cuff 11/24/13 Active Insomnia(Confirmed) Active Upper respiratory 08/31/14 Resolved , 15 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 [...] 10Data migrated from [employer] on 04/16/15. 11Data migrated from [employer] on 02/27/15. 12[facility] no evidence of malignancy 13Data migrated from [employer] on 02/27/15. 14Data migrated from [employer] on 04/17/15. 15Data migrated from [employer] on 04/16/15. 16Data migrated from [employer] on 02/27/15. 17Data migrated from [employer] on 02/27/15. Allergies, Adverse Reactions, Alerts Substance Reaction Severity Status NKDA Active Medications No data available for this section Results No data available for this section Immunizations Given and Recorded Vaccine Date Status Refusal Reason diphtheria/pertussis, acel/tetanus adult 06/12/16 Given influenza virus vaccine, inactivated 06/12/16 Given influenza virus vaccine, inactivated 07/01/15 Recorded influenza virus vaccine, inactivated1 06/25/14 Given influenza virus vaccine, inactivated2 07/02/13 Given pneumococcal 23-valent vaccine3 08/10/14 Given 1Result Comment: fluzone high dose [ezv207]. Migrated from OBS ; Data migrated from [employer] on 11/02/2015. 2Result Comment: fluzone (>3 yrs.) [hup019]. Migrated from OBS ; Data migrated from [employer] on 11/02/2015. 3Result Comment: pneumovax 23 [cvx33]. Migrated from OBS VIS: Pneumovax 23: 07-06-09 ; Data migrated from [employer] on 11/02/2015. Procedures Procedure Date Related Diagnosis Body Site Mammogram - screening 01/01/17 Colonoscopy1 03/27/16 Examination of eye2, 3 03/2016 Bone density scan4 01/26/16 Varicose vein operation 12/30/15 Myocardial perfusion scan 10/2014 Echocardiogram5 11/29/12 section6 1moderate diverticulosis,internal hemorrhoids repeat in 5years. . 2Per patient 3Dr.Carlitos Wang 4Osteoporosis 5EF 67% Normal 6x2 Social History Social History Type Response Alcohol Never Smoking Status Never smoker; Exposure to Tobacco Smoke None; Cigarette Smoking Last 365 Days No; Reg Smoking Cessation Counseling No Assessment and Plan No data available for this section
--- OUTSIDE RECORDS SUMMARY | 2018-09-26 06:20 | XMS REPORT | Summary of Care ---
Author Author [facility] Organization [facility] Address Unknown Phone Unavailable Encounter HQ Jerry(FIN) [id number] Date(s): 03/28/18 - 03/28/18 [facility] [address], [address] [place] [address]- [phone] Discharge Disposition: Home or Self Care Attending Physician: Teresa Ackerman MD Vital Signs Most recent to 1 oldest [Reference Range]: Height 154.94 cm (03/28/18 9:41 AM) Temperature Oral 97.5 DegF [96.4-99.1 DegF] (03/28/18 9:41 AM) Blood Pressure 106/66 mmHg [90-140/60-90 mmHg] (03/28/18 9:41 AM) Respiratory Rate 16 BRMIN [14-20 BRMIN] (03/28/18 9:41 AM) Peripheral Pulse 75 bpm Rate [60-100 bpm] (03/28/18 9:41 AM) Weight 59.602 kg (03/28/18 9:41 AM) Body Mass Index 24.83 m2 (03/28/18 9:41 AM) Problem List Condition Effective Dates [...] Prediabetes(Confirme Active d) Rotator cuff 11/24/13 Active rfuxvihu08 Insomnia(Confirmed) Active Lumbar canal Active stenosis(Confirmed) Scleroderma(Confirme Active d) Upper respiratory 08/31/14 Resolved uojvysyvl98, 14 Varicose veins of 03/11/14 Active lower extremity(Confirmed) 15 Vitamin D 08/10/14 Active fskeuhddri82 1Data migrated from [employer] on 05/05/15. [...] Substance Reaction Severity Status NKDA Active Medications rosuvastatin 5 mg oral tablet 5 mg=1 tab, PO, Bedtime, # 90 tab, 1 Refill(s), Pharmacy: [facility] 0 4098 Start Date: 03/28/18 Status: Ordered Results No data available for this section Immunizations Given and Recorded Vaccine Date Status Refusal Reason influenza virus vaccine, inactivated1 06/01/17 Recorded influenza virus vaccine, inactivated 06/12/16 Given influenza virus vaccine, inactivated 07/01/15 Recorded influenza virus vaccine, inactivated2 06/25/14 Given influenza virus vaccine, inactivated3 07/02/13 Given diphtheria/pertussis, acel/tetanus adult 06/12/16 Given pneumococcal 23-valent vaccine4 08/10/14 Given 1Result Comment: [06/27/2017] At [facility] 2Result Comment: fluzone high dose [ukn739]. Migrated from OBS ; Data migrated from [employer] on 11/02/2015. 3Result Comment: fluzone (>3 yrs.) [kjc559]. Migrated from OBS ; Data migrated from [employer] on 11/02/2015. 4Result Comment: pneumovax 23 [cvx33]. Migrated from OBS VIS: Pneumovax 23: 07-06-09 ; Data migrated from [employer] on 11/02/2015. Procedures Procedure Date Related Diagnosis [...] next one in a year. At [facility] 4moderate diverticulosis,internal hemorrhoids repeat in 5years. . 5Per patient 6Dr.Carlitos Wang 7EF 67% Normal 8x2 Social History Social History Type Response Alcohol Never Smoking Status Never smoker; Ready to change: No; Concerns about tobacco use in household: No; Exposure to Tobacco Smoke None; Cigarette Smoking Last 365 Days No; Reg Smoking Cessation Counseling No entered on: 03/28/18 Assessment and Plan No data available for this section
--- OUTSIDE RECORDS SUMMARY | 2018-09-26 06:20 | XMS REPORT | Summary of Care ---
Author Author [facility] Organization [facility] Address Unknown Phone Unavailable Encounter HQ Jerry(FIN) [id number] Date(s): 12/27/17 - 12/27/17 [facility] [address], [address] [place] [address]- [phone] Discharge Disposition: Home or Self Care Attending Physician: Teresa Ackerman MD Vital Signs Most recent to 1 oldest [Reference Range]: Height 154.94 cm (12/27/17 9:29 AM) Temperature Oral 97.0 DegF [96.4-99.1 DegF] (12/27/17 9:29 AM) Blood Pressure 119/65 mmHg [90-140/60-90 mmHg] (12/27/17 9:29 AM) Respiratory Rate 16 BRMIN [14-20 BRMIN] (12/27/17 9:29 AM) Peripheral Pulse 1 bpm Rate [60-100 bpm] *LOW* (12/27/17 9:29 AM) Weight 60.057 kg (12/27/17 9:29 AM) Body Mass Index 25.02 m2 (12/27/17 9:29 AM) Problem List Condition Effective Dates Status [...] Prediabetes(Confirme Active d) Rotator cuff 11/24/13 Active mbuueqtu51 Insomnia(Confirmed) Active Lumbar canal Active stenosis(Confirmed) Scleroderma(Confirme Active d) Upper respiratory 08/31/14 Resolved tjazfnnib98, 14 Varicose veins of 03/11/14 Active lower extremity(Confirmed) 15 Vitamin D 08/10/14 Active fwyippambn89 1Data migrated from [employer] on 05/05/15. [...] Substance Reaction Severity Status NKDA Active Medications gabapentin 300 mg oral capsule 300 mg=1 cap, PO, BID, # 90 cap, 1 Refill(s) Start Date: 12/27/17 Status: Ordered Results No data available for this section Immunizations Given and Recorded Vaccine Date Status Refusal Reason influenza virus vaccine, inactivated1 06/01/17 Recorded influenza virus vaccine, inactivated 06/12/16 Given influenza virus vaccine, inactivated 07/01/15 Recorded influenza virus vaccine, inactivated2 06/25/14 Given influenza virus vaccine, inactivated3 07/02/13 Given diphtheria/pertussis, acel/tetanus adult 06/12/16 Given pneumococcal 23-valent vaccine4 08/10/14 Given 1Result Comment: [06/27/2017] At [facility] 2Result Comment: fluzone high dose [adp666]. Migrated from OBS ; Data migrated from [employer] on 11/02/2015. 3Result Comment: fluzone (>3 yrs.) [sfl909]. Migrated from OBS ; Data migrated from [employer] on 11/02/2015. 4Result Comment: pneumovax 23 [cvx33]. Migrated from OBS VIS: Pneumovax 23: 07-06-09 ; Data migrated from [employer] on 11/02/2015. Procedures Procedure Date Related Diagnosis [...] next one in a year. At [facility] 4moderate diverticulosis,internal hemorrhoids repeat in 5years. . [...]
--- OUTSIDE RECORDS SUMMARY | 2018-09-26 06:20 | XMS REPORT ---
Author Author Hugo Pires Organization [employer] Address Unknown Phone Unavailable Care Team Providers Care Dredge Pumper Name Role Phone Hugo Pires CP Unavailable Allergies, Adverse Reactions, Alerts Substance Reaction Event Type N.K.D.A. 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 Medications Medication Code System Code Instructions Start Date End Date Status Dosage Losartan Potassium ND 11373326705 25 MG Orally Once a day Active 1 tablet Rosuvastatin Calcium ND 00829237365 5 MG Orally Once a day Active 1 tablet Gabapentin ND 20026204348 300 MG Orally Once a day Active 2 capsule Hydroxychloroquine Sulfate ND 56593517358 200 MG Orally Once a day Aug 01, 2018 Active 1.5 tablet with food or milk Prevacid [facility] 24083316378 15 MG Orally Once a day Active 1 capsule Vital Signs Date/Time: Sep 09, 2018 BMI 25 Index Weight 127 lbs Height 60 in Temperature 97.9 F Cardiac Monitoring Heart Rate 72 /min Blood Pressure Diastolic 60 mm Hg Blood Pressure Systolic 136 mm Hg Results No Known Results Summary Purpose eClinicalWorks Submission
--- OUTSIDE RECORDS SUMMARY | 2018-09-26 06:20 | XMS REPORT | Summary of Care ---
Author Author [facility] Primary [facility] Organization [facility] Address Unknown Phone Unavailable Encounter HQ Sandy_roberto(FIN) [id number] Date(s): 03/08/18 - 03/09/18 [facility] [address], [address] [place] [address]- [phone] Vital Signs No data available for this [...] Prediabetes(Confirme Active d) Rotator cuff 11/24/13 Active bmzstgou31 Insomnia(Confirmed) Active Lumbar canal Active stenosis(Confirmed) Scleroderma(Confirme Active d) Upper respiratory 08/31/14 Resolved qaiakjtic23, 14 Varicose veins of 03/11/14 Active lower extremity(Confirmed) 15 Vitamin D 08/10/14 Active kwadqqyufy93 1Data migrated from [employer] on 05/05/15. 2Data migrated from [employer] on 05/05/15. 3Data migrated from [employer] on 04/07/15. 4Data migrated from [employer] on 04/07/15. 5Data migrated from [employer] on 04/07/15. 6Data migrated from [employer] on 02/27/15. 7Data migrated from [employer] on 5/30/15. 8Data migrated from [employer] on 02/27/15. [...] vaccine4 08/10/14 Given 1Result Comment: [06/27/2017] At [facility] 2Result Comment: fluzone high dose [zob389]. Migrated from OBS ; Data migrated from [employer] on 11/02/2015. 3Result Comment: fluzone (>3 yrs.) [cth390]. Migrated from OBS ; Data migrated from [...] next one in a year. At [facility] 4moderate diverticulosis,internal hemorrhoids repeat in 5years. . 5Per patient 6Dr.Carlitos Wang 7EF 67% Normal 8x2 Social History Social History Type Response Alcohol Never Smoking Status Never smoker; Type: Cigarettes; Exposure to Tobacco Smoke None; Cigarette Smoking Last 365 Days No; Reg Smoking Cessation Counseling No entered on: 02/26/18 Assessment and Plan No data available for this section
--- OUTSIDE RECORDS SUMMARY | 2018-09-26 06:20 | XMS REPORT ---
Author Author Nakul Gomes Organization [employer] Address Unknown Phone Unavailable Care Team Providers Care Automated Teller Manager Name Role Phone Nakul Gomes CP Unavailable [...]
--- OUTSIDE RECORDS SUMMARY | 2018-09-26 06:20 | XMS REPORT | Summary of Care ---
Author Organization Unknown Address Unknown Phone Unavailable Encounter HQ Jerry(IVAN) [id number] Date(s): 03/01/15 - 03/30/15 [facility] Discharge Disposition: Home Physician Attending: Jovany Kenney MD Vital Signs No data available for this section Problem List Condition Effective Dates Status Health Status Informant Cobalamin 08/10/14 Active deficiency1 Cramp in lower limb2 09/29/14 Active Elevated 07/02/13 Active blood-pressure reading without diagnosis of hypertension3 Foot callus4 11/24/13 Active Heart murmur5 03/11/14 Active Hyperlipidemia6 Active Impaired fasting 12/05/13 Active glycaemia7 Indigestion8 10/20/14 Active Insomnia9 Active Liver function tests 11/28/13 Active rvqbcjaj64 Mammography 11/13/13 Active iypgnkpn42 Asvlbgnyeb06 11/24/13 Active Postmenopausal 07/14/13 Active state13 Rotator cuff 11/24/13 Active Varicose veins of 03/11/14 Active lower jjzzqfpal76 Vitamin D 08/10/14 Active ylvsrfzrfa75 1Data migrated from [employer] on 02/27/15. [...] [employer] on 02/27/15. Allergies, Adverse Reactions, Alerts No data available for this section Medications No data available for this section Results No data available for this section Immunizations No data available for this section Procedures No data available for this section Social History No data available for this section Assessment and Plan No data available for this section
--- OUTSIDE RECORDS SUMMARY | 2018-09-26 06:21 | XMS REPORT ---
Author Author Ramila Cunningham [facility] eClinicalWorks Address Unknown Phone Unavailable Care Team Providers Care Fish Processing Supervisor Name Role Phone Ramila Cunningham Unavailable Allergies, Adverse Reactions, Alerts Substance Reaction Event Type N.K.D.A. 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 [...] Instructions Start Date End Date Status Dosage Prevacid ND 42978364757 15 MG Orally Once a day Active 1 capsule Losartan Potassium ND 85221762485 25 MG Orally Once a day Active 1 tablet PredniSONE ND 47864016900 5 MG Orally Once a day Jul 29, 2018 Aug 28, 2018 Active 1 tab prn Gabapentin ND 23927550022 300 MG Orally Once a day Active 2 capsule Hydroxychloroquine Sulfate ND 47823449174 200 MG Orally twice a day Aug 01, 2018 Active 1 tablet with food or milk Rosuvastatin Calcium ND 76426303842 5 MG Orally Once a day Active 1 tablet Vital Signs Date/Time: Aug 07, 2018 BMI 26.66 Index Weight 132 lbs Height 59 in Temperature 97.0 F Cardiac Monitoring Heart Rate 80 /min Blood Pressure Diastolic 62 mm Hg Blood Pressure Systolic 118 mm Hg Results No Known Results Summary Purpose eClinicalWorks Submission
[2018-09-26 09:30] VITALS: BP 144/64
== END | disposition home or self-care (01) ==
LOC: OR 06:17
PROVIDERS: ATTEND Ophthalmology
DX: H25.12 Age-related nuclear cataract, left eye (principal); K21.9 Gastro-esophageal reflux disease without esophagitis; I12.9 Hypertensive chronic kidney disease with stage 1 through stage 4 chronic kidney disease, or unspecified chronic kidney disease; N18.3 Chronic kidney disease, stage 3 (moderate); Z01.810 Encounter for preprocedural cardiovascular examination; Z01.812 Encounter for preprocedural laboratory examination
CPT/HCPCS: 36415; 66984; 80048; 85025; 93005; J0171; J2001; J2704; V2632

== ENCOUNTER → 2019-01-30 | Day surgery (SDC) | payer MEDICARE ==
[2019-01-29 15:32] LABS: BASOPHILS # (AUTO) 0.1 (0.0-0.1); EOSINOPHILS # (AUTO) 0.5 (0.0-0.4); EOSINOPHILS % 6.6 % (0.0-6.0); HEMATOCRIT 38.1 % (34.2-44.1); LYMPHOCYTES % 28.4 % (18.0-39.1); MEAN CORPUSCULAR HEMOGLOBIN 32.7 pg (28-32); MEAN CORPUSCULAR HGB CONC 34.1 g/dL (31-35); MONOCYTES # (AUTO) 0.6 (0.2-0.8); MONOCYTES % 8.8 % (4.4-11.3); NEUTROPHILS # (AUTO) 3.9 (2.1-6.9); NEUTROPHILS % 55.1 % (38.7-80.0); PLATELET COUNT 251 x10e3/uL (140-360); RED BLOOD COUNT 3.97 x10e6/uL (3.6-5.1); RED CELL DISTRIBUTION WIDTH 12.2 % (11.7-14.4)
[2019-01-29 15:47] LABS: ANION GAP 13.4 mmol/L (8-16); CALCIUM 10.6 mg/dL (8.4-10.2); CREATININE, SERUM 1.23 mg/dL (0.57-1.11); POTASSIUM 4.4 mmol/L (3.5-5.1)
[~2019-01-30] MED LIST changes: +BUPIVACAINE HC 0.75% PF 10ML VIAL INJ ONE; +EPINEPHRINE HCL 1:1000 1ML 1 MG/ML AMP ONE; -EPINEPHRINE HCL INJ 1 MG/ML AMP ONE; +FENTANYL CITRATE/PF 100MCG/2 ML INJ ONE; +MIDAZOLAM HCL 2 MG/2 ML VIAL ONE; +PHENYLEPHRINE HCL 2 ML DROPS ONE; -PREOP PHACO EYE KIT ONE
[2019-01-30 08:20] VITALS: BP 112/61
== END | disposition home or self-care (01) ==
LOC: OR 05:08
PROVIDERS: ATTEND Ophthalmology
DX: H25.11 Age-related nuclear cataract, right eye (principal); I12.9 Hypertensive chronic kidney disease with stage 1 through stage 4 chronic kidney disease, or unspecified chronic kidney disease; N18.9 Chronic kidney disease, unspecified; E78.5 Hyperlipidemia, unspecified; M19.90 Unspecified osteoarthritis, unspecified site; K21.9 Gastro-esophageal reflux disease without esophagitis; Z01.810 Encounter for preprocedural cardiovascular examination; Z01.812 Encounter for preprocedural laboratory examination
CPT/HCPCS: 36415; 66984; 80048; 85025; 93005; J0171; J2001; J2250; V2632

== ENCOUNTER 2020-09-04 15:33 | Emergency (ER) | payer MEDICARE ==
[~2020-09-04] VITALS: Ht 152.4 cm; Wt 59.0 kg
[~2020-09-04 15:33] MED LIST changes: -BUPIVACAINE HC 0.75% PF 10ML VIAL INJ ONE; -CHONDR SU A NA/HYALUR SOD 1 EACH KIT IO ONE; -CYCLOPENTOLATE HCL 1% OPTH SOLN 2ML BTL ONE; -EPINEPHRINE HCL 1:1000 1ML 1 MG/ML AMP ONE; -FENTANYL CITRATE/PF 100MCG/2 ML INJ ONE; -GATIFLOXACIN(OPTH) 5 ML LIQD ONE; -LIDOCAINE 2% /EPINEPHRINE 20 ML SDV INJ ONE; -LIDOCAINE HCL-PF 4% 40 MG/1 ML 5ML AMP ONE; -MIDAZOLAM HCL 2 MG/2 ML VIAL ONE; -PHENYLEPHRINE HCL 2 ML DROPS ONE; -PILOCARPINE HCL(OPTH) 15 ML LIQD ONE; -POVIDONE IODINE 5% (OPTH) 30 ML BTL ONE; -PROPOFOL IV EMULSION 10 MG/ML 20 ML VIAL ONE; -TOBRAMYCIN/DEXAMETHASONE(OPTH) 3.5 GM TUBE ONE
[2020-09-04] MEDS ORDERED: LIDOCAINE 4% PATCH TP ONE (16:00)
[2020-09-04] MEDS ORDERED: HYDROCODONE/APAP 5MG-325MG TAB PO ONE (16:00)
== END 2020-09-04 18:54 | disposition home or self-care (01) ==
LOC: ER 16:41
DX: M25.512 Pain in left shoulder (principal); S40.012A Contusion of left shoulder, initial encounter; W01.0XXA Fall on same level from slipping, tripping and stumbling without subsequent striking against object, initial encounter; Y93.E9 Activity, other interior property and clothing maintenance; Y92.008 Other place in unspecified non-institutional (private) residence as the place of occurrence of the external cause; I10 Essential (primary) hypertension; E78.5 Hyperlipidemia, unspecified; I25.10 Atherosclerotic heart disease of native coronary artery without angina pectoris; K21.9 Gastro-esophageal reflux disease without esophagitis
CPT/HCPCS: 99283